=== PATIENT | female | born 1965 | race African-American/Black ===

== ENCOUNTER 2019-10-08 07:03 | Emergency (ER) | payer BC ==
--- NOTE | 2019-10-08 07:14 | UC ---
UC General HPI - HPI Summary HPI Summary: Feeling bad all over. Subj increased temp Minimal cough ++ sinus pain / congestion No new rash (hx exzema). No GI issues perse, but appetite decreased. Works in a public environment. - History of Current Complaint Stated Complaint: SINUS ISSUE SORE THROAT Time Seen by Provider: 10/08/19 07:14 Hx Obtained From: Patient - Allergy/Home Medications Allergies/Adverse Reactions: Allergies Allergy/AdvReac Type Severity Reaction Status Date / Time No Known Allergies Allergy Verified 10/08/19 07:16 Home Medications: Home Medications Amoxicillin PO (*) [Amoxicillin 875 MG (*)] 875 mg PO BID #14 tab 10/08/19 [Rx] Diphenhydra/Phenyleph/Acetamin [Cold & Flu Relief Multi-S 12.5-5-325 mg/10Ml] 1 liq PO DAILY PRN 10/08/19 [History Confirmed 10/08/19] Losartan/Hydrochlorothiazide [Losartan Potassium/Hydroc 50-12.5 mg] 1 tab PO DAILY 10/08/19 [History Confirmed 10/08/19] Oseltamivir CAP* [Tamiflu CAP*] 75 mg PO BID #10 cap 10/08/19 [Rx] PMH/Surg Hx/FS Hx/Imm Hx Previously Healthy: Yes - hx sinus - Surgical History Surgical History: Yes Surgery Procedure, Year, and Place: MYOMECTOMY. 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-WILL CLEAR WITH ORBIT DX PER DR LANZA Review of Systems All Other Systems Reviewed And Are Negative: Yes Constitutional: Positive: Fatigue, Other - see hpi Skin: Positive: Negative Eyes: Positive: Other - see hpi ENT: Positive: Sore Throat, Nasal Discharge, Sinus Congestion Respiratory: Positive: Other - see hpi Cardiovascular: Positive: Negative Gastrointestinal: Positive: Negative Genitourinary: Positive: Negative Motor: Positive: Negative Neurovascular: Positive: Negative Musculoskeletal: Positive: Negative Neurological/Mental Status: Positive: Negative Psychological: Positive: Negative Is Patient Immunocompromised?: No Physical Exam Triage Information Reviewed: Yes Appearance: Well-Nourished - sitting up, conversing easily looks tired but nad Eye Exam: Normal - watery eyes o/w ok ENT: Positive: Pharyngeal erythema - mild post pharynx redness, uvula midline, no sores / exudates, Nasal congestion, TM dull - tm dull au Neck exam: Normal Neck: Positive: Supple, Nontender, No Lymphadenopathy Respiratory Exam: Normal Respiratory: Positive: Chest non-tender, Lungs clear, Normal breath sounds, No respiratory distress, No accessory muscle use Cardiovascular Exam: Normal Cardiovascular: Positive: RRR, Pulses Normal, Brisk Capillary Refill Abdominal Exam: Normal Abdomen Description: Positive: Nontender Musculoskeletal Exam: Normal - gait steady Neurological Exam: Normal - nonfocal Psychological Exam: Normal - nad Skin Exam: Normal - nondiaphoretic no visible or reported rash Course/Dx - Course Course Of Treatment: INfluenza A + Reviewed coa / tx plan. Will tx for sinusitis too. Questions as posed answered to the best of my ability. - Diagnoses Provider Diagnosis: Sinusitis, Influenza Discharge ED - Sign-Out/Discharge Documenting (check all that apply): Patient Departure All imaging exams completed and their final reports reviewed: No Studies - Discharge Plan Condition: Stable Disposition: HOME Patient Education Materials: Sinusitis (ED), Influenza (ED) Forms: *Work Release Referrals: Sharonda Alvares MD [Primary Care Provider] - Additional Instructions: Hydrate. Follow up with your primary care physician, per routine. [Seek medical attention for worse or new problems. - Billing Disposition and Condition Condition: STABLE Disposition: Home
[2019-10-08 07:16] VITALS: BP 109/66
[2019-10-08 07:32] LABS: Influenza A Molecular POSITIVE (Negative)
== END 2019-10-08 08:05 | disposition home or self-care (01) ==
LOC: UCEAST 07:03
DX: J10.1 Influenza due to other identified influenza virus with other respiratory manifestations (principal); J32.9 Chronic sinusitis, unspecified
CPT/HCPCS: 99212; G0463